=== PATIENT | male | born 1970 | race Caucasian/White ===

== ENCOUNTER 2017-03-20 16:20 | Emergency (ER) | payer SELFPAY ==
[~2017-03-20 16:20] MED LIST: Sodium Chloride 0.9% 1,000 ML BAG ONE
[2017-03-20] MEDS ORDERED: Lisinopril 10 MG TAB ONE (16:49)
[2017-03-20 17:07] LABS: #Basophils 0.1 thou/uL (0.0-0.2); #Eosinphils 0.3 thou/uL (0.0-0.7); #Monocytes 0.5 thou/uL (0.11-0.59); #Neutrophils 4.4 thou/uL (1.40-6.50); %Basophils 1.6 % (0.0-1.0); %Eosinophils 3.6 % (0.0-10.0); %Lymphocytes 27.4 % (21.0-51.0); %Monocytes 7.4 % (0.0-10.0); Hemoglobin 12.9 g/dL (14.0-18.0); Mean Corpuscular Hemoglobin 29.6 pg (27.0-31.0); Mean Corpuscular Volume 92.5 fl (80.0-94.0); Platelet Count 230 thou/uL (130-400); Red Blood Cell (RBC) Count 4.37 mill/uL (4.70-6.10); White Blood Cell (WBC) Count 7.3 thou/uL (4.8-10.8)
[2017-03-20 17:16] LABS: Anion Gap 12 mmol/L (10-20); BUN (Urea Nitrogen) 27 mg/dL (8.9-20.6); Calc. Creatinine Clearance 0 mL/min (70-130); Calcium 8.8 mg/dL (7.8-10.44); Carbon Dioxide 25 mmol/L (22-29); Chloride 106 mmol/L (98-107); Estimated GFR-MDRD 65; Glucose 88 mg/dL (70-105); Potassium 3.9 mmol/L (3.5-5.1); Sodium 139 mmol/L (136-145)
[2017-03-20 17:48] LABS: Troponin I 0.024 ng/mL (< 0.028)
[2017-03-20] MEDS ORDERED: Aspirin 325 MG TAB ONE (18:27)
[2017-03-20] MEDS ORDERED: Nitroglycerin 2% Ointment 1 INCH/1 GM Packet ONE (18:27)
[2017-03-20 18:52] LABS: Bilirubin Negative (Negative); Blood, Urine Trace (Negative); Glucose, Urine (Dipstick) Negative (Negative); Leukocyte Negative (Negative); Nitrite Negative (Negative); Protein, Urine (Dipstick) Negative (Neg-Trace); Specific Gravity, Urine 1.015 (1.005-1.030); Urobilinogen 0.2 mg/dL (0.2-1.0)
[2017-03-20 19:00] LABS: Amphetamine Not Detected (NotDetected); Barbiturates Screen Not Detected (NotDetected); Benzodiazepine Screen Not Detected (NotDetected); Clarity Hazy (Clear); Cocaine Metabolite Screen Not Detected (NotDetected); Medtox Control Line Valid? VALID (VALID); Methadone Not Detected (NotDetected); Methamphetamine Not Detected (NotDetected); Opiate Screen Not Detected (NotDetected); Oxycodone Screen Not Detected (NotDetected); Phencyclidine (PCP) Not Detected (NotDetected); THC/Cannabinoid Screen Detected (NotDetected); Tricyclic Screen Not Detected (NotDetected)
[2017-03-20 19:02] LABS: Bacteria/HPF Rare-Few HPF (None Seen); RBC/HPF 0-3 HPF (0-3); Squamous Epithelial None Seen HPF (0-3); WBC/HPF None Seen HPF (0-3)
== END 2017-03-20 19:00 | disposition short-term general hospital (02) ==
LOC: MADERS 16:20
DX: M62.82 Rhabdomyolysis (principal); I10 Essential (primary) hypertension; R07.9 Chest pain, unspecified
CPT/HCPCS: 36415; 80048; 80306; 81003; 81015; 82553; 84484; 85025; 93005; J7050

== ENCOUNTER 2017-05-17 17:20 | Emergency (ER) | payer SELFPAY ==
[2017-05-17] MEDS ORDERED: predniSONE 20 MG TAB ONE (17:37)
== END 2017-05-17 18:54 | disposition home or self-care (01) ==
LOC: MADERS 17:20
DX: T63.441A Toxic effect of venom of bees, accidental (unintentional), initial encounter (principal); I10 Essential (primary) hypertension
CPT/HCPCS: 96360; J7050; J7506

== ENCOUNTER 2018-01-27 07:04 | Emergency (ER) | payer SELFPAY ==
[2018-01-27 08:42] LABS: Hemoglobin 14.1 g/dL (14.0-18.0); Mean Corpuscular HGB CONC 32.1 g/dL (32.0-36.0); Mean Corpuscular Volume 93.4 fL (78.0-98.0); Platelet Count 203 thou/uL (130-400); RBC Distribution Width 12.3 % (11.5-14.5); White Blood Cell (WBC) Count 8.4 thou/uL (4.8-10.8)
[2018-01-27 08:54] LABS: ALT (SGPT) 41 U/L (8-55); AST (SGOT) 26 U/L (5-34); Albumin 3.8 g/dL (3.5-5.0); Alkaline Phosphatase 75 U/L (40-150); Anion Gap 12 mmol/L (10-20); BUN (Urea Nitrogen) 16 mg/dL (8.9-20.6); Bilirubin, Total 0.6 mg/dL (0.2-1.2); Calc. Creatinine Clearance 0 mL/min (70-130); Calcium 8.9 mg/dL (7.8-10.44); Carbon Dioxide 27 mmol/L (22-29); Chloride 106 mmol/L (98-107); Estimated GFR-MDRD 77; Glucose 99 mg/dL (70-105); Potassium 4.1 mmol/L (3.5-5.1); Protein, Total 6.8 g/dL (6.0-8.3); Sodium 141 mmol/L (136-145)
[2018-01-27 09:03] LABS: Band 2 % (5-11); MDiff Complete? YES; Manual Diff?? YES; Neutrophil 65 % (42-75)
[2018-01-27 09:04] LABS: Anisocytosis SLIGHT = 6-15 cells (100X) (0-5/hpf); Eosinophils 3 % (0-10); Lymphocytes 22 % (21-51); Monocytes 8 % (0-10); PLT Morphology Comment Appears Adequate
--- NOTE | 2018-01-27 09:04 | RAD ---
PORTABLE CHEST 1 VIEW: Date: 01/27/18 Time: 0819 hours HISTORY: Dyspnea. FINDINGS: Comparison made with exam of 03/21/17. 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 There is continued mild elevation of the right hemidiap hragm. The heart size is normal. The lungs are well expanded without focal areas of consolidation, pn eumothoraces, or pleural effusions. Postop changes of right distal clavicular resection are again not ed. IMPRESSION: No radiographic evidence of acute cardiopulmonary process. POS: OFF
[2018-01-27 18:33] LABS: HBSAg Index 0.22 S/CO (0-0.99); HIV (1/2) Antibody/Antigen Non-Reactive (NonReactive); HIV 1/2 INDEX 0.13 S/CO (<1.00); Hep B Surf Ag Non-Reactive S/CO (NonReactive)
[2018-01-27 19:37] LABS: Hep C IgG Ab Reflex HepC Qnt (NonReactive)
[2018-01-27 19:38] LABS: Hep C Index 14.13 S/CO (0-0.79)
[2018-01-30 11:28] LABS: HCV log10 6.083 (.); Hep C PCR-Quant 1210000 IU/mL (.)
== END 2018-01-27 09:10 | disposition home or self-care (01) ==
LOC: MADERS 07:04
DX: B34.9 Viral infection, unspecified (principal); I10 Essential (primary) hypertension; F41.9 Anxiety disorder, unspecified; Z79.899 Other long term (current) drug therapy
CPT/HCPCS: 71045; 80053; 85025; 86803; 87081; 87340; 87389; 87430; 87522; 87804; 93005